=== PATIENT | female | born 1985 | race Caucasian/White ===

== ENCOUNTER 2020-02-29 21:36 | Emergency (ER) | payer MEDICAID ==
--- NOTE | 2020-02-29 21:40 | EDM.PDOC ---
ED HPI GENERAL MEDICAL PROBLEM - General Stated Complaint: BACK PAIN RADIATING TO FRONT Time Seen by Provider: 02/29/20 21:45 Source of Information: Reports: Patient History Limitations: Reports: No Limitations - History of Present Illness INITIAL COMMENTS - FREE TEXT/NARRATIVE: Patient presented to the ED because of back pain which started 1 week ago. The pain is like spasm,7/10, worse with movements. She took OTC tylenol without any relief. - Related Data Allergies Allergy/AdvReac Type Severity Reaction Status Date / Time No Known Allergies Allergy Verified 02/29/20 21:48 Home Meds: Home Meds Cyclobenzaprine [Flexeril] 10 mg PO Q8H PRN #15 tab 02/29/20 [Rx] ED ROS GENERAL - Review of Systems Review Of Systems: See Below Constitutional: Reports: No Symptoms HEENT: Reports: No Symptoms Respiratory: Reports: No Symptoms Cardiovascular: Reports: No Symptoms Endocrine: Reports: No Symptoms GI/Abdominal: Reports: No Symptoms : Reports: No Symptoms Musculoskeletal: Reports: Back Pain Skin: Reports: No Symptoms Psychiatric: Reports: No Symptoms Hematologic/Lymphatic: Reports: No Symptoms Immunologic: Reports: No Symptoms ED EXAM, GI/ABD - Physical Exam Exam: See Below Exam Limited By: No Limitations General Appearance: Alert, No Apparent Distress Ears: Normal External Exam, Normal Canal Nose: Normal Inspection, Normal Mucosa Neck: Normal Inspection, Supple, Non-Tender Respiratory/Chest: No Respiratory Distress, Lungs Clear, Normal Breath Sounds Cardiovascular: Normal Peripheral Pulses GI/Abdominal Exam: Normal Bowel Sounds, Soft Back Exam: Normal Inspection, Full Range of Motion Extremities: Normal Inspection, Normal Range of Motion Neurological: Alert, Oriented, CN II-XII Intact, Normal Cognition, Normal Gait Psychiatric: Normal Affect Course - Vital Signs Text/Narrative:: Flexeril 10 mg PO x1 Ibuprofen 800 mg with tylenol 1000 mg po x1 Last Recorded V/S: Last Vital Signs Temp 36.3 C 02/29/20 21:40 Pulse 63 02/29/20 21:40 Resp 18 02/29/20 21:40 BP 127/64 02/29/20 21:40 Pulse Ox 98 02/29/20 21:40 - Orders/Labs/Meds Meds: Medications Discontinued Medications Generic Name Dose Route Start Last Admin Trade Name Freq PRN Reason Stop Dose Admin Acetaminophen 1,000 mg 02/29/20 21:54 02/29/20 22:00 Tylenol Extra Strength PO 02/29/20 21:55 1,000 mg ONETIME ONE Administration Cyclobenzaprine HCl 10 mg 02/29/20 21:52 02/29/20 22:01 Flexeril PO 02/29/20 21:53 10 mg ONETIME ONE Administration Ibuprofen 800 mg 02/29/20 21:52 02/29/20 22:00 Motrin PO 02/29/20 21:53 800 mg ONETIME ONE Administration Departure - Departure Time of Disposition: 21:55 Disposition: Home, Self-Care 01 Condition: Good Clinical Impression: Thoracic sprain, Lumbar sprain - Discharge Information Prescriptions: Cyclobenzaprine [Flexeril] 10 mg PO Q8H PRN #15 tab PRN Reason: Muscle Spasm Instructions: Acute Back Pain, Adult Referrals: PCP,None [Primary Care Provider] - Forms: ED Department Discharge Additional Instructions: Please read discharge instructions on back pain Take all the following medicines at the same time for better pain relief. 1. Ibuprofen 800 mg with tylenol 1000 mg evry 8 hours as needed for pain 2. Flexeril 10 mg every 8 hours as needed for muscle spasm Follow up as needed
[2020-02-29] MEDS ORDERED: Cyclobenzaprine 10 MG Tab PO ONE (21:52)
[2020-02-29] MEDS ORDERED: Ibuprofen 800 MG Tab PO ONE (21:52)
[2020-02-29] MEDS ORDERED: Acetaminophen 500 MG Tab PO ONE (21:54)
== END 2020-02-29 22:10 | disposition home or self-care (01) ==
LOC: FB.ED 21:36
DX: S33.5XXA Sprain of ligaments of lumbar spine, initial encounter (principal); S23.3XXA Sprain of ligaments of thoracic spine, initial encounter
CPT/HCPCS: 99283; A9270

== ENCOUNTER 2020-03-06 01:48 | Emergency (ER) | payer MEDICAID ==
[2020-03-06] MEDS ORDERED: Sodium Chloride 0.9% 10 ML Syringe FLUSH PRN (01:59)
[2020-03-06] MEDS ORDERED: HYDROmorphone 2 MG/ML SDV IVPUSH ONE ×2 (02:00→02:59)
[2020-03-06] MEDS ORDERED: Ondansetron 4 MG/2 ML SDV IVPUSH ONE ×2 (02:03→03:04)
[2020-03-06] MEDS ORDERED: Pantoprazole 40 MG Vial IVPUSH ONE (02:04)
[2020-03-06] MEDS ORDERED: Sodium Chloride 0.9% 1,000 ML IV SCH (02:15)
--- NOTE | 2020-03-06 03:10 | EDM.PDOC ---
ED HPI GENERAL MEDICAL PROBLEM - General Chief Complaint: Abdominal Pain Stated Complaint: right side pain Time Seen by Provider: 03/06/20 02:50 Source of Information: Reports: Patient History Limitations: Reports: No Limitations - History of Present Illness INITIAL COMMENTS - FREE TEXT/NARRATIVE: Patient developed RUQ pain radiating to back at 2000 tonight, associated with nausea. Denies prior h/o abdominal surgeries. No known history of gallbladder disease. Denies urinary complaints. She is two months post . Onset Date: 03/05/20 Onset Time: 20:00 Location: Reports: Abdomen Quality: Reports: Ache Severity: Moderate Improves with: Reports: None Worsens with: Reports: None Right Upper Abdomen Pain Score (Numeric/FACES): 9 - Related Data Allergies Allergy/AdvReac Type Severity Reaction Status Date / Time No Known Allergies Allergy Verified 03/06/20 02:55 Home Meds: Home Meds Acetaminophen/HYDROcodone [Wayne 325-5 MG] 1 - 2 tab PO Q6H PRN #20 tab 03/06/20 [Rx] Sulfamethoxazole/Trimethoprim [Bactrim Ds Tablet] 1 each PO BID #14 tablet 03/06/20 [Rx] ondansetron HCL [Zofran] 4 mg PO Q8H PRN #10 tablet 03/06/20 [Rx] 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 ED EXAM, GI/ABD - Physical Exam Exam: See Below Exam Limited By: No Limitations General Appearance: Alert, WD/WN, No Apparent Distress Throat/Mouth: No Airway Compromise Head: Atraumatic, Normocephalic Neck: Full Range of Motion Respiratory/Chest: No Respiratory Distress, Lungs Clear, Normal Breath Sounds Cardiovascular: Regular Rate, Rhythm, No Murmur GI/Abdominal Exam: Normal Bowel Sounds, Soft, No Distention, Tender (RUQ). No: Guarding Back Exam: CVA Tenderness (R) Extremities: Normal Range of Motion Neurological: Alert, Normal Cognition Psychiatric: Normal Affect, Normal Mood Skin Exam: Warm, Dry, Intact Course - Vital Signs Last Recorded V/S: Last Vital Signs Temp 36.4 C 03/06/20 02:05 Pulse 96 03/06/20 04:57 Resp 16 03/06/20 04:57 BP 132/86 03/06/20 04:57 Pulse Ox 100 03/06/20 04:57 - Orders/Labs/Meds Orders: Active Orders 24 hr Category Date Time Status Abdomen Pelvis w Cont [CT] Stat Exams 03/06/20 03:10 Taken CULTURE URINE [RM] Stat Lab 03/06/20 02:09 Received Sodium Chloride 0.9% [Normal Saline] 1,000 ml Med 03/06/20 02:15 Active IV ASDIRECTED Sodium Chloride 0.9% [Saline Flush] Med 03/06/20 01:59 Active 10 ml FLUSH ASDIRECTED PRN Saline Lock Insert [OM.PC] Routine Oth 03/06/20 01:59 Ordered Medication Orders Sodium Chloride (Normal Saline) 1,000 mls @ 200 mls/hr IV ASDIRECTED JACLYN Last Admin: 03/06/20 02:15 Dose: 200 mls/hr Documented by: RUDY Sodium Chloride (Saline Flush) 10 ml FLUSH ASDIRECTED PRN PRN Reason: Keep Vein Open Last Admin: 03/06/20 02:12 Dose: 10 ml Documented by: RUDY Labs: Laboratory Tests 03/06/20 03/06/20 03/06/20 Range/Units 02:06 02:06 02:06 WBC 8.7 (4.5-12.0) X10-3/uL RBC 3.86 (3.23-5.20) x10(6)uL Hgb 11.1 L (11.5-15.5) g/dL Hct 33.1 (30.0-51.3) % MCV 85.6 (80-96) fL MCH 28.7 (27.7-33.6) pg MCHC 33.6 (32.2-35.4) g/dL RDW 14.7 (11.5-15.5) % Plt Count 351 (125-369) X10(3)uL MPV 7.7 (7.4-10.4) fL Neut % (Auto) 65.8 (46-82) % Lymph % (Auto) 24.3 (13-37) % [place] % (Auto) 6.7 (4-12) % Eos % (Auto) 3 (1.0-5.0) % Baso % (Auto) 1 (0-2) % Neut # (Auto) 5.8 (1.6-8.3) # Lymph # (Auto) 2.1 (0.6-5.0) # [place] # (Auto) 0.6 (0.0-1.3) # Eos # (Auto) 0.2 (0.0-0.8) # Baso # (Auto) 0.0 (0.0-0.2) # Sodium 139 (135-145) mmol/L Potassium 3.8 (3.5-5.3) mmol/L Chloride 102 (100-110) mmol/L Carbon Dioxide 28 (21-32) mmol/L BUN 12 (7-18) mg/dL Creatinine 0.8 (0.55-1.02) mg/dL Est Cr Clr Drug Dosing 98.18 mL/min Estimated GFR (MDRD) > 60 (>60) BUN/Creatinine Ratio 15.0 (9-20) Glucose 116 (80-116) mg/dL Calcium 9.3 (8.6-10.2) mg/dL Total Bilirubin 0.2 (0.1-1.3) mg/dL AST 20 (5-25) IU/L ALT 35 (12-36) U/L Alkaline Phosphatase 79 (56-112) IU/L Total Protein 7.1 (6.0-8.0) g/dL Albumin 3.2 L (3.5-5.2) g/dL Globulin 3.9 g/dL Albumin/Globulin Ratio 0.8 Lipase 105 (73-393) U/L Urine Color (YELLOW) Urine Appearance (CLEAR) Urine pH (5.0-6.5) Ur Specific [place] (1.010-1.025) Urine Protein (NEGATIVE) mg/dL Urine Glucose (UA) (NORMAL) mg/dL Urine Ketones (NEGATIVE) mg/dL Urine Occult Blood (NEGATIVE) Urine Nitrite (NEGATIVE) Urine Bilirubin (NEGATIVE) Urine Urobilinogen (NEGATIVE) mg/dL Ur Leukocyte Esterase (NEGATIVE) Urine RBC (0-5) Urine WBC (0-5) Ur Squamous Epith Cells (NS,R,O) Amorphous Sediment Urine Bacteria (NS) Urine Mucus (NS) Urine HCG, Qual (NEGATIVE) 03/06/20 03/06/20 Range/Units 02:09 02:09 WBC (4.5-12.0) X10-3/uL RBC (3.23-5.20) x10(6)uL Hgb (11.5-15.5) g/dL Hct (30.0-51.3) % MCV (80-96) fL MCH (27.7-33.6) pg MCHC (32.2-35.4) g/dL RDW (11.5-15.5) % Plt Count (125-369) X10(3)uL MPV (7.4-10.4) fL Neut % (Auto) (46-82) % Lymph % (Auto) (13-37) % [place] % (Auto) (4-12) % Eos % (Auto) (1.0-5.0) % Baso % (Auto) (0-2) % Neut # (Auto) (1.6-8.3) # Lymph # (Auto) (0.6-5.0) # [place] # (Auto) (0.0-1.3) # Eos # (Auto) (0.0-0.8) # Baso # (Auto) (0.0-0.2) # Sodium (135-145) mmol/L Potassium (3.5-5.3) mmol/L Chloride (100-110) mmol/L Carbon Dioxide (21-32) mmol/L BUN (7-18) mg/dL Creatinine (0.55-1.02) mg/dL Est Cr Clr Drug Dosing mL/min Estimated GFR (MDRD) (>60) BUN/Creatinine Ratio (9-20) Glucose (80-116) mg/dL Calcium (8.6-10.2) mg/dL Total Bilirubin (0.1-1.3) mg/dL AST (5-25) IU/L ALT (12-36) U/L Alkaline Phosphatase (56-112) IU/L Total Protein (6.0-8.0) g/dL Albumin (3.5-5.2) g/dL Globulin g/dL Albumin/Globulin Ratio Lipase (73-393) U/L Urine Color Yellow (YELLOW) Urine Appearance Slightly cloudy (CLEAR) Urine pH 5.0 (5.0-6.5) Ur Specific [place] 1.020 (1.010-1.025) Urine Protein Negative (NEGATIVE) mg/dL Urine Glucose (UA) Normal (NORMAL) mg/dL Urine Ketones Negative (NEGATIVE) mg/dL Urine Occult Blood Trace (NEGATIVE) Urine Nitrite Negative (NEGATIVE) Urine Bilirubin Negative (NEGATIVE) Urine Urobilinogen Normal (NEGATIVE) mg/dL Ur Leukocyte Esterase Small H (NEGATIVE) Urine RBC 0-5 (0-5) Urine WBC 5-10 H (0-5) Ur Squamous Epith Cells Moderate H (NS,R,O) Amorphous Sediment Few Urine Bacteria Few H (NS) Urine Mucus Few H (NS) Urine HCG, Qual Negative (NEGATIVE) Meds: Medications Generic Name Dose Route Start Last Admin Trade Name Gayle PRN Reason Stop Dose Admin Sodium Chloride 1,000 mls @ 200 mls/hr 03/06/20 02:15 03/06/20 02:15 Normal Saline IV 200 mls/hr ASDIRECTED JACLYN Administration Sodium Chloride 10 ml 03/06/20 01:59 03/06/20 02:12 Saline Flush FLUSH 10 ml ASDIRECTED PRN Administration Keep Vein Open Discontinued Medications Generic Name Dose Route Start Last Admin Trade Name Gayle PRN Reason Stop Dose Admin Hydromorphone HCl 0.5 mg 03/06/20 02:00 03/06/20 02:08 Dilaudid IVPUSH 03/06/20 02:01 0.5 mg ONETIME ONE Administration Hydromorphone HCl 0.5 mg 03/06/20 02:59 03/06/20 03:05 Dilaudid IVPUSH 03/06/20 03:00 Not Given ONETIME ONE Iopamidol 100 ml 03/06/20 03:42 03/06/20 03:57 Isovue-370 (76%) IV 03/06/20 03:43 100 ml ONETIME ONE Administration Ondansetron HCl 4 mg 03/06/20 02:03 03/06/20 02:12 Zofran IVPUSH 03/06/20 02:04 4 mg ONETIME ONE Administration Ondansetron HCl 4 mg 03/06/20 03:04 03/06/20 03:08 Zofran IVPUSH 03/06/20 03:05 4 mg ONETIME ONE Administration Pantoprazole Sodium 40 mg 03/06/20 02:04 03/06/20 02:12 Protonix Iv IVPUSH 03/06/20 02:05 40 mg ONETIME ONE Administration - Radiology Interpretation Free Text/Narrative:: CT Abd/Pelvis w/ IV contrast: Unremarkable CT of the abdomen and pelvis. Dictated by Fatuma Springer MD @ Mar 06 2020 4:46AM ([facility]) - Re-Assessments/Exams Free Text/Narrative Re-Assessment/Exam: 03/06/20 05:34 Symptoms improved after Dilaudid and Zofran. Departure - Departure Time of Disposition: 05:34 Disposition: Home, Self-Care 01 Condition: Good Clinical Impression: Biliary colic UTI (urinary tract infection) Qualifiers: Urinary tract infection type: acute cystitis Hematuria presence: without hematuria Qualified Code(s): N30.00 - Acute cystitis without hematuria - Discharge Information *PRESCRIPTION DRUG MONITORING PROGRAM REVIEWED*: Yes *COPY OF PRESCRIPTION DRUG MONITORING REPORT IN PATIENT DARLENE: No Prescriptions: Sulfamethoxazole/Trimethoprim [Bactrim Ds Tablet] 1 each PO BID #14 tablet Acetaminophen/HYDROcodone [Wayne 325-5 MG] 1 - 2 tab PO Q6H PRN #20 tab PRN Reason: Abdominal Pain ondansetron HCL [Zofran] 4 mg PO Q8H PRN #10 tablet PRN Reason: Nausea/Vomiting Instructions: Biliary Colic, Adult, Urinary Tract Infection, Adult, [id number], Gallbladder Eating Plan Referrals: Elodia Galvan NP [Nurse Practitioner] - 3 Days Forms: ED Department Discharge Additional Instructions: Fill the prescriptions for Wayne, Zofran, and Bactrim at [facility] and take as directed. Eat a low fat diet. Follow up this week for a Gallbladder Ultrasound. Follow up with a Primary Physician in 2-3 days. Return to the ER if symptoms worsen. Sepsis Event Note (ED) - Evaluation Sepsis Screening Result: No Definite Risk - Focused Exam Vital Signs: Vital Signs Temp Pulse Resp BP Pulse Ox 03/06/20 04:57 96 16 132/86 100 03/06/20 03:16 72 16 145/101 H 100 03/06/20 02:05 36.4 C 62 16 135/70 99 - My Orders Last 24 Hours: My Active Orders 03/06/20 01:59 Sodium Chloride 0.9% [Saline Flush] 10 ml FLUSH ASDIRECTED PRN Saline Lock Insert [OM.PC] Routine 03/06/20 02:09 CULTURE URINE [RM] Stat 03/06/20 02:15 Sodium Chloride 0.9% [Normal Saline] 1,000 ml IV ASDIRECTED 03/06/20 03:10 Abdomen Pelvis w Cont [CT] Stat - Assessment/Plan Last 24 Hours: My Active Orders 03/06/20 01:59 Sodium Chloride 0.9% [Saline Flush] 10 ml FLUSH ASDIRECTED PRN Saline Lock Insert [OM.PC] Routine 03/06/20 02:09 CULTURE URINE [RM] Stat 03/06/20 02:15 Sodium Chloride 0.9% [Normal Saline] 1,000 ml IV ASDIRECTED 03/06/20 03:10 Abdomen Pelvis w Cont [CT] Stat
[2020-03-06] MEDS ORDERED: Iopamidol 755 Mg/ML 100 ML Bottle IV ONE (03:42)
== END 2020-03-06 06:00 | disposition home or self-care (01) ==
LOC: FB.ED 01:48
DX: N30.00 Acute cystitis without hematuria (principal); K80.50 Calculus of bile duct without cholangitis or cholecystitis without obstruction
CPT/HCPCS: 36415; 74177; 80053; 81001; 81025; 83690; 85025; 87086; 96374; 96375; 96376; 99284; C9113; J1170; J2405; J7030; Q9967

== ENCOUNTER 2022-11-24 21:58 | Emergency (ER) | payer MEDICAID ==
[2022-11-24 22:56] LABS: INFLUENZA A NAA NEGATIVE (NEGATIVE); INFLUENZA B NAA NEGATIVE (NEGATIVE); RESPIRATORY SYNCYTIAL VIR NAA NEGATIVE (NEGATIVE)
[2022-11-24 23:01] LABS: CORONAVIRUS COVID-19 NAA NEGATIVE (NEGATIVE)
[2022-11-24] MEDS ORDERED: Acetaminophen 500 MG Tab PO ONE (23:11)
[2022-11-24] MEDS ORDERED: Amoxicillin/Clavulanate K 875-125 MG Tab PO ONE (23:11)
[2022-11-24] MEDS ORDERED: Ibuprofen 800 MG Tab PO ONE (23:11)
== END 2022-11-24 23:24 | disposition home or self-care (01) ==
LOC: FB.ED 21:58
DX: J02.9 Acute pharyngitis, unspecified (principal); Z20.822 Contact with and (suspected) exposure to COVID-19
CPT/HCPCS: 0241U; 36415; 86308; 87651; 99283; A9270

== ENCOUNTER 2023-11-02 16:42 | Emergency (ER) | payer SELFPAY | END 2023-11-02 18:35 | disposition home or self-care (01) | LOC: FB.ED 16:42 | DX: S82.492A Other fracture of shaft of left fibula, initial encounter for closed fracture (principal); Z79.899 Other long term (current) drug therapy; X50.1XXA Overexertion from prolonged static or awkward postures, initial encounter | CPT/HCPCS: 73610-LT; 99283 ==